=== PATIENT | male | born 1975 | race African-American/Black ===

== ENCOUNTER 2016-11-07 15:15 | Inpatient (IN) | payer OTHER ==
--- NOTE | ~2016-11-07 | DS ---
Unit #: [id number] #: [id number] Patient: KINZA KENNEDY [id number] [facility] [address] [place] [address] [id number] MR#: [id number] NAME: KINZA KENNEDY ROOM: [facility] Age: 41 Sex: M Admission Date: 11/07/2016 : 1975 Discharge Date: 11/10/2016 Attending Physician: Kalyan Che M.D. Primary Care Physician: Primary Care Physician No DISCHARGE SUMMARY REASON FOR ADMISSION The patient is a 41-year-old male with a history of heroin and cocaine abuse. HOSPITAL COURSE The patient was admitted to the [facility] unit and placed on routine detoxification protocol for opioids. His stay in the hospital was a brief and uneventful one. By 11/09, arrangements have been made for the patient to go to [facility] in [place] for residential chemical dependency treatment and discharge to take place on 11/10/2016. FINAL DIAGNOSES Opioid use disorder. DISPOSITION ON DISCHARGE No psychotropic or other medications ordered at the time of discharge. FOLLOWUP The patient will follow up through the auspices of [facility] in [place], [place]. PROGNOSIS His prognosis is considered good. Dictated by... Kalyan Che M.D. CB/brandon TD: 11/09/2016 15:49 JOB #: [id number] DISCHARGE SUMMARY Page 1 of 1 X Kalyan Che MD X DISCHARGE SUMMARY
--- NOTE | ~2016-11-07 | PA ---
Unit #: [id number] #: [id number] Patient: KINZA KENNEDY [id number] [facility] [address] [place] [address] [id number] MR#: [id number] NAME: KINZA KENNEDY ROOM: [facility] Age: 41 Sex: M Admission Date: 11/07/2016 : 1975 Date of Assessment: 11/08/2016 Attending Physician: Kalyan Che M.D. Admitting Physician: Kalyan Che M.D. Primary Care Physician: Primary Care Physician No PSYCHIATRIC ASSESSMENT IDENTIFYING INFORMATION The patient is a 41-year-old male admitted to the [facility] unit with a history of opioid and cocaine use. INFORMANT(S) Patient. RELIABILITY Good. CHIEF COMPLAINT Need to get off heroin. HISTORY OF PRESENT ILLNESS The patient is a 41-year-old male admitted with a history of heroin and cocaine abuse. He reports previous treatment in the [facility] at the [facility] as well as at facility in [place], [place]. He states that he has been using for approximately 10 years. He denies any history of intravenous substance use. The patient reports that he was "thinking of crazy ways to get money" in order to support his habit and this is what prompted him to come to the hospital. He was laid off from his job in July and has not worked since. He lives with his and a child. PAST PSYCHIATRIC HISTORY As above. FAMILY HISTORY Noncontributory. SOCIAL HISTORY The patient lives with his . He reports substance use as noted previously and is a smoker. MEDICAL HISTORY Noncontributory. MEDICATION HISTORY None. ALLERGIES Trazodone. Unit #: [id number] #: [id number] Patient: KINZA KENNEDY MENTAL STATUS EXAM At this time, reveals the patient to be a well-developed, well-nourished male appearing stated age. He appears to be in moderate physical distress related to opioid withdrawal. He is awake, alert, oriented in all spheres. His mood is dysphoric. His affect constricted. Speech is generally relevant and coherent. There are no gross deficits in memory or cognition noted. Intelligence is judged to be in the average range based on fund of knowledge. The patient is cooperative throughout the interview. He is currently denying suicidal or homicidal ideation or psychotic features. Judgement and insight appear to be intact. ASSETS AND LIABILITIES Patient's assets, motivation for change. Liabilities, lack of resources. ADMITTING DIAGNOSES 1. Opioid use disorder. 2. Cocaine use disorder. PSYCHIATRIC PLAN/TREATMENT GOALS The patient remains hospitalized for safety and stabilization. He is expressing interest in possible referral for residential chemical dependence treatment and to this end, I will ask the patient's outreach and education social worker to see him regarding possible referral. ESTIMATED LENGTH OF STAY Three to five days with follow up to take place through the auspices of residential and/or chemical dependence treatment resources. Dictated by... Kalyan Che M.D. CE/sruthi TD: 11/08/2016 15:46 JOB #: [id number] PSYCHIATRIC ASSESSMENT Page 1 of 1 X Kalyan Che MD X PSYCHIATRIC ASSESSMENT
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
[2016-11-08 10:01] LABS: BASOPHIL% 0.8 % (0-2.5); EOSINOPHIL# 0.4 X10e3 (0-0.7); EOSINOPHIL% 9.1 % (0.0-7.0); HEMATOCRIT 45.4 % (38.0-50.0); HEMOGLOBIN 14.7 gm/dL (13.0-16.0); LYMPHOCYTE# 2.1 X10e3 (1.0-3.5); LYMPHOCYTE% 43.8 % (17.0-45.0); MEAN CELL VOLUME 89.7 FL (83-96); MEAN CORPUSCULAR HEMOGLOBIN 29.1 PG (28-34); MEAN CORPUSCULAR HGB CONC 32.5 g/dL (30-36); MEAN PLATELET VOLUME 10.9 FL (6.5-11.5); MONOCYTE# 0.3 X10e3 (0-1.0); MONOCYTE% 6.9 % (3.0-12.0); NEUTROPHIL# 1.9 X10e3 (1.5-7.1); NEUTROPHIL% 39.4 % (40-75); RED BLOOD COUNT 5.06 X10e (3.90-5.60); RED CELL DISTRIBUTION WIDTH 14.2 % (11.0-15.5); WHITE BLOOD COUNT 4.8 X10e3 (4.0-10.5)
[2016-11-08 10:20] LABS: ALBUMIN SERUM 3.9 g/dL (3.5-5.0); BILIRUBIN,TOTAL 0.9 mg/dL (0.2-2.0); BUN/CREATININE RATIO 14.28; CALCIUM SERUM 9.1 mg/dL (8.4-10.2); CREATININE SERUM 0.7 mg/dL (0.6-1.4); POTASSIUM 4.1 mmol/L (3.5-5.1); PROTEIN TOTAL SERUM 6.6 g/dL (6.0-8.3)
[2016-11-08 10:49] LABS: DIFF IND NO; PLATELET COUNT 153 X10e3 (140-420)
[2016-11-08 12:44] LABS: URINE APPEARANCE CLEAR; URINE BILIRUBIN NEG (NEG); URINE BLOOD NEG (NEG); URINE COLOR YELLOW; URINE GLUCOSE NEG (NEG); URINE KETONE NEG (NEG); URINE LEUKOCYTE ESTERASE TRACE (NEG); URINE NITRATE NEG (NEG); URINE PROTEIN NEG (NEG); URINE SPECIFIC GRAVITY 1.019 (1.003-1.035)
[2016-11-08 12:51] LABS: URBCS1 AUWI 0-2 /[HPF] (0-2); URINE BACTERIA AUWI NEG (NEGATIVE); URINE SQUAMOUS EPITHELIAL CELL NONE SEEN /[HPF]
[2016-11-08 13:11] LABS: AMPHETAMINE NEG (NEG); BARBITURATES NEG (NEG); BENZODIAZEPINES POS (NEG); COCAINE POS (NEG); MARIJUANA NEG (NEG); OPIATES POS (NEG); TRICYCLIC ANTIDEPRESSANTS NEG (NEG); U METHADONE NEG (NEG)
== END 2016-11-10 10:00 | disposition home or self-care (01) | DRG 897 ==
LOC: P1E 17:56
PROVIDERS: Specialist
PROC: HZ2ZZZZ Detoxification Services for Substance Abuse Treatment (ICD-10-PCS; principal; 2016-11-08)
DX: F11.10 Opioid abuse, uncomplicated (principal); F17.210 Nicotine dependence, cigarettes, uncomplicated
CPT/HCPCS: 80053; 80307; 81003; 85025; 86592